=== PATIENT | male | born 1995 | race Caucasian/White ===

== ENCOUNTER 2018-12-17 22:47 | Emergency (ER) | payer SELFPAY ==
[~2018-12-17] VITALS: Wt 60.1 kg
[~2018-12-17 22:47] MED LIST: ACET500C5 PO; FAMO-96 PO; IBUP-1542 PO; NAPR-985 PO
[2018-12-18 01:40] VITALS: BP 133/64; PULSE 81; RESP 16
--- NOTE | 2018-12-18 02:37 | ERD ---
ER Documentation Chief Complaint Chief Complaint SCALP ISSUES HPI 23-year-old male presents with complaint of scaly spots on scalp x4 weeks. Patient notes to often get lesions on scalp which he picks at out of frustration. Patient notes lesions have come and go throughout most of his life however he is always had the habit of picking. Patient states to presents over concern of lesion to scalp being larger than usual however denies pain, purulent discharge, fever, warmth, swelling to the area. Patient denies lesions elsewhere of the body. Patient notes a history of anxiety. No other known medical conditions ROS All systems reviewed and are negative except as per history of present illness. Medications Home Meds Active Scripts Famotidine* (Pepcid*) 20 Mg Tablet, 20 MG PO BID for 14 Days, TAB Prov:NATHANAEL HALE PA-C 01/30/16 Acetaminophen* (Tylophen*) 500 Mg Capsule, 1 CAP PO Q6H PRN for PAIN AND OR ELEVATED TEMP, #30 CAP Prov:NATHANAEL HALE PA-C 01/30/16 Ibuprofen* (Motrin*) 600 Mg Tab, 600 MG PO Q6, #30 TAB Prov:NATHANAEL HALE PA-C 01/30/16 Naproxen* (Naprosyn*) 500 Mg Tablet, 500 MG PO BID PRN for PAIN AND/OR INFLAMMATION, #30 TAB Prov:BENNY OVIEDO PA-C 08/15/15 Allergies Allergies: Coded Allergies: No Known Allergy (Verified , 07/02/14) PMhx/Soc History of Surgery: No Anesthesia Reaction: No Hx Neurological Disorder: No Hx Respiratory Disorders: No Hx Cardiac Disorders: No Hx Psychiatric Problems: No Hx Miscellaneous Medical Probl: No Hx Alcohol Use: Yes Hx Substance Use: Yes Hx Tobacco Use: Yes Smoking Status: Current every day smoker FmHx Family History: No diabetes, No coronary disease, No other Physical Exam Vitals Vital Signs Date Temp Pulse Resp B/P (MAP) Pulse Ox O2 O2 Flow FiO2 Time Delivery Rate 12/18/18 98.1 81 16 133/64 99 Room Air 01:40 (87) 12/17/18 97.4 103 18 139/68 99 22:53 (91) Physical Exam Const: No acute distress Head: Atraumatic. Multiple scab lesions to the scalp consistent with scratching or picking. No visible erythema, no scales, pustules, no flaking. No visible areas of alopecia or hair loss. No visible signs of infection. Eyes: Normal Conjunctiva ENT: Normal External Ears, Nose and Mouth. Neck: Full range of motion. No meningismus. Resp: Clear to auscultation bilaterally Cardio: Regular rate and rhythm, no murmurs Ext: No cyanosis, or edema Neur: Awake and alert Psych: Normal Mood and blunted affect. Procedures/MDM MDM: This is a 23-year-old male who presents to the emergency room with complaint of lesion to the scalp. On exam visible scabs to scalp consistent with picking. No visible signs of infection. Very low suspicion for cellulitis, tinea, psoriasis, seborrheic dermatitis, or other bacterial or fungal infection. Very low suspicious for cellulitis. Counseled patient extensively regarding cessation of picking and need for possible follow-up with PCP or psychiatry for management of chronic picking. At this time there is no visible infection however offered patient prescription for antibiotic ointment to help lesions heal quickly. Patient refused prescription due to insurance issues. Patient stated he knew how to take care of the lesions himself and would be doing so without a prescription. No acute or emergent findings found on exam, patient stable for discharge at this time with outpatient follow-up. Patient given [facility] handout for follow-up with a PCP. ED return precautions discussed. Patient expressed verbal understanding and agreement to treatment plan. Departure Diagnosis: Primary Impression: Scab Additional Impression: Skin picking habit Condition: Good Referrals: [facility], [facility] YOU HAVE RECEIVED A MEDICAL SCREENING EXAM AND THE RESULTS INDICATE THAT YOU DO NOT HAVE A CONDITION THAT REQUIRES URGENT TREATMENT IN THE EMERGENCY DEPARTMENT. FURTHER EVALUATION AND TREATMENT OF YOUR CONDITION CAN WAIT UNTIL YOU ARE SEEN IN YOUR DOCTORS OFFICE WITHIN THE NEXT 1-2 DAYS. IT IS YOUR RESPONSIBILITY TO MAKE AN APPOINTMENT FOR FOLOW-UP CARE. IF YOU HAVE A PRIMARY DOCTOR --you should call your primary doctor and schedule an appointment IF YOU DO NOT HAVE A PRIMARY DOCTOR YOU CAN CALL OUR PHYSICIAN REFERRAL HOTLINE AT IF YOU CAN NOT AFFORD TO SEE A PHYSICIAN YOU CAN CHOSE FROM THE FOLLOWING [facility] [id number] [facility]. [facility] [address] [facility]. [address] [facility] [address] [facility] [address] [facility]. [facility] [address] Additional Instructions: You were seen today for scabs and skin picking. At this time there is no visible infection to your scalp, however continued picking may result in infection. Should warmth, swelling, or purulent discharge present from the scabs or if fever develops please return to the emergency department as this may indicate an infection needing further work-up and management. You have been advised to use [id number] Neosporin and keep area clean and dry. DEON MEYERS PA-C December 18, 2018 02:37
== END 2018-12-18 01:41 | disposition home or self-care (01) ==
LOC: FTE 22:47
DX: L98.9 Disorder of the skin and subcutaneous tissue, unspecified (principal); F17.210 Nicotine dependence, cigarettes, uncomplicated; F42.4 Excoriation (skin-picking) disorder
CPT/HCPCS: 99282